=== PATIENT | female | born 1980 | race Two or more races ===

== ENCOUNTER 2023-08-08 21:49 | Emergency (ER) | payer OTHER ==
[~2023-08-08] VITALS: Ht 157.5 cm; Wt 65.9 kg
[2023-08-08 23:17] LABS: COVID AG,FIA SOURCE NASAL SWAB
[2023-08-08 23:40] LABS: SARS-COV2 (COVID) ANTIGEN,FIA Negative (Negative)
[2023-08-08 23:42] LABS: INFLUENZA TYPE A NEGATIVE FOR TYPE A (NEGATIVE); INFLUENZA TYPE B NEGATIVE FOR TYPE B (NEGATIVE)
[2023-08-09] MEDS ORDERED: CloNIDine HCL 0.1 MG TABLET PO ONE
[2023-08-09] MEDS ORDERED: CloNIDine HCL 0.2 MG TABLET PO ONE
[2023-08-09 00:17] LABS: BASOPHILS % (AUTO) 0.2 % (0.0-2.0); EOSINOPHILS % (AUTO) 0.6 % (1.0-6.0); HEMATOCRIT 37.2 % (36-46); HEMOGLOBIN 11.9 g/dL (12.0-16.0); LYMPHOCYTES # (AUTO) 0.5 K/uL (1.0-4.8); LYMPHOCYTES % (AUTO) 4.5 % (22.0-44.0); MEAN CORPUSCULAR HEMOGLOBIN 27.6 pg (26.0-34.0); MEAN CORPUSCULAR HGB CONC 32.1 G/dL (31.0-37.0); MEAN CORPUSCULAR VOLUME 86 fL (80-100); MONOCYTES # (AUTO) 0.5 K/uL (0.1-1.0); MONOCYTES % (AUTO) 4.4 % (2.0-9.0); NEUTROPHILS # (AUTO) 10.2 K/uL (1.8-7.7); NEUTROPHILS % (AUTO) 90.3 % (40.0-70.0); PLATELET COUNT (AUTO) 286 K/uL (150-450); RED BLOOD CELL COUNT(AUTO) 4.33 MIL/uL (4.00-5.20); WHITE BLOOD COUNT (AUTO) 11.3 K/uL (4.5-11.0)
[2023-08-09 00:34] LABS: TROPONIN I-HIGH SENSITIVITY 11 ng/L (<51)
[2023-08-09 00:35] LABS: B-TYPE NATRIURETIC PEPTIDE 64 pg/mL (0-100)
[2023-08-09 00:42] LABS: ALANINE AMINOTRANSFERASE 18 U/L (12-78); ALBUMIN 3.7 g/dL (3.4-5.0); ALKALINE PHOSPHATASE 94 U/L (46-116); ANION GAP 9 mmol/L (8-16); ASPARTATE AMINOTRANSFERASE 14 U/L (15-37); BILIRUBIN,TOTAL 0.5 mg/dL (0.1-1.0); CALCIUM, TOTAL 8.2 mg/dL (8.8-10.5); CARBON DIOXIDE 27 mmol/L (22-29); CHLORIDE 102 mmol/L (98-107); CREATINE KINASE, TOTAL ONLY 75 U/L (26-192); GLOMERULAR FILTR. RATE CALC > 60 mL/min (>60); GLUCOSE,RANDOM 109 mg/dL (70-110); LIPASE 26 U/L (16-77); SODIUM SERUM 138 mmol/L (136-145); TOTAL PROTEIN, SERUM 7.1 g/dL (6.4-8.2); UREA NITROGEN, BLOOD 13 mg/dL (7-18)
[2023-08-09 00:43] LABS: POTASSIUM 2.7 mmol/L (3.5-5.1)
[2023-08-09] MEDS ORDERED: POTASSIUM CHLORIDE 20 MEQ ER TABLET PO ONE (01:45)
[2023-08-09] MEDS ORDERED: POTA-364 PO (02:20)
[2023-08-09] MEDS ORDERED: AMLO-257 PO (02:22)
[2023-08-09 02:54] VITALS: BP 142/94; PULSE 82; RESP 16
== END 2023-08-09 03:04 | disposition home or self-care (01) ==
LOC: EMS 21:50
DX: I16.0 Hypertensive urgency (principal); E87.6 Hypokalemia; Z20.822 Contact with and (suspected) exposure to COVID-19
CPT/HCPCS: 71045; 80053; 82550; 83690; 83880; 84484; 85025; 87804; 93005; 99291; 36415-L1; 36415-TC

== ENCOUNTER 2024-10-23 16:27 | Inpatient (IN) | payer OTHER ==
[~2024-10-23] VITALS: Ht 160 cm; Wt 75.2 kg
[~2024-10-23 16:27] MED LIST: AMLO-257 PO; POTA-364 PO
[2024-10-23] MEDS: ACETAMINOPHEN 500 MG TABLET PO ONE (20:23)
[2024-10-23] MEDS: AmLODIPine BESYLATE 10 MG TABLET PO ONE (20:23)
[2024-10-23] MEDS: ONDANSETRON HCL 4 MG/2 ML VIAL IVP ONE (20:23)
[2024-10-23 20:55] LABS: BASOPHILS % (AUTO) 0.5 % (0.0-2.0); EOSINOPHILS % (AUTO) 0.6 % (1.0-6.0); HEMATOCRIT 41.3 % (36-46); HEMOGLOBIN 13.7 g/dL (12.0-16.0); LYMPHOCYTES # (AUTO) 1.7 K/uL (1.0-4.8); LYMPHOCYTES % (AUTO) 20.9 % (22.0-44.0); MEAN CORPUSCULAR HEMOGLOBIN 30.6 pg (26.0-34.0); MEAN CORPUSCULAR HGB CONC 33.3 G/dL (31.0-37.0); MEAN CORPUSCULAR VOLUME 92 fL (80-100); MONOCYTES # (AUTO) 0.6 K/uL (0.1-1.0); MONOCYTES % (AUTO) 7.3 % (2.0-9.0); NEUTROPHILS # (AUTO) 5.6 K/uL (1.8-7.7); NEUTROPHILS % (AUTO) 70.7 % (40.0-70.0); PLATELET COUNT (AUTO) 327 K/uL (150-450); RED BLOOD CELL COUNT(AUTO) 4.49 MIL/uL (4.00-5.20); RED CELL DISTRIBUTION WIDTH 13.8 % (11.5-14.5); WHITE BLOOD COUNT (AUTO) 7.9 K/uL (4.5-11.0)
[2024-10-23 20:59] LABS: ANION GAP 12 mmol/L (8-16); CALCIUM, TOTAL 8.7 mg/dL (8.8-10.5); CARBON DIOXIDE 27 mmol/L (22-29); CHLORIDE 99 mmol/L (98-107); CREATININE 0.57 mg/dL (0.60-1.30); GLOMERULAR FILTR. RATE CALC > 60 mL/min (>60); GLUCOSE,RANDOM 105 mg/dL (70-110); SODIUM SERUM 138 mmol/L (136-145); UREA NITROGEN, BLOOD 7 mg/dL (7-18)
[2024-10-23 21:03] LABS: ALCOHOL, BLOOD (SERUM) < 3 mg/dL (0-10); POTASSIUM 2.7 mmol/L (3.5-5.1)
[2024-10-23] MEDS: POTASSIUM CHLORIDE 20 MEQ ER TABLET PO ONE (21:58)
[2024-10-23] MEDS: POTASSIUM CHLORIDE 10% 40 MEQ/30 ML LIQUID UDCUP PO ONE (21:58)
[2024-10-23] MEDS: LABETALOL HCL 5 MG/ML 20 ML VIAL IVP ONE (22:32)
[2024-10-23] MEDS: NITROGLYCERIN 2% (1 GM=INCH) OINTMENT PACKET TP ONE (23:00)
[2024-10-23] MEDS ORDERED: MAGNESIUM SULFATE 2 GM/WATER 50 ML IV PRN (23:30)
[2024-10-23] MEDS ORDERED: MAGNESIUM HYDROXIDE SUSPENSION 30 ML UDCUP PO PRN (23:30)
[2024-10-23] MEDS ORDERED: MAGNESIUM OXIDE 400 MG TABLET PO PRN (23:30)
[2024-10-23] MEDS ORDERED: BISACODYL 10 MG RECTAL RECTAL SUPPOSITORY PR PRN (23:30)
[2024-10-23] MEDS ORDERED: IPRATROPIUM BROMIDE 0.5 MG/2.5 ML NEB SOLUTION NEB PRN (23:30)
[2024-10-23] MEDS ORDERED: HydrALAZINE HCL 20 MG/ML VIAL IVP PRN (23:30)
[2024-10-23] MEDS ORDERED: MAGNESIUM SULFATE 4 GM/WATER 100 ML IV PRN (23:30)
[2024-10-23] MEDS ORDERED: ONDANSETRON HCL 4 MG/2 ML VIAL IVP PRN (23:30)
[2024-10-23] MEDS ORDERED: ALBUTEROL SULFATE 2.5 MG/0.5 ML NEB SOLUTION NEB PRN (23:30)
[2024-10-23] MEDS ORDERED: POTASSIUM CHL 10 MEQ/WATER 50 ML IV PRN (23:30)
[2024-10-23] MEDS: HEPARIN SODIUM,PORCINE 5,000 UNITS/ML VIAL SQ SCH (23:47)
[2024-10-23] MEDS: CloNIDine HCL 0.2 MG TABLET PO ONE (23:47)
[2024-10-24] MEDS: ONDANSETRON 4 MG TABLET PO ONE (01:11)
[2024-10-24] MEDS: LORazepam 1 MG TABLET PO ONE (01:11)
[2024-10-24] MEDS: ZOLPIDEM TARTRATE 5 MG TABLET PO PRN (01:12)
[2024-10-24] MEDS: ACETAMINOPHEN 325 MG TABLET PO PRN (01:41)
[2024-10-24 03:45] VITALS: BP 119/77; PULSE 67; RESP 19; TEMP 98.1; O2SAT 97
[2024-10-24 08:04] VITALS: BP 108/79; PULSE 84; RESP 18; TEMP 98.2; O2SAT 99
[2024-10-24 08:06] LABS: BASOPHILS % (AUTO) 0.9 % (0.0-2.0); EOSINOPHILS % (AUTO) 3.4 % (1.0-6.0); HEMATOCRIT 38.5 % (36-46); HEMOGLOBIN 12.8 g/dL (12.0-16.0); LYMPHOCYTES # (AUTO) 1.6 K/uL (1.0-4.8); LYMPHOCYTES % (AUTO) 30.1 % (22.0-44.0); MEAN CORPUSCULAR HEMOGLOBIN 30.6 pg (26.0-34.0); MEAN CORPUSCULAR HGB CONC 33.3 G/dL (31.0-37.0); MEAN CORPUSCULAR VOLUME 92 fL (80-100); MONOCYTES # (AUTO) 0.5 K/uL (0.1-1.0); MONOCYTES % (AUTO) 9.5 % (2.0-9.0); NEUTROPHILS # (AUTO) 2.9 K/uL (1.8-7.7); NEUTROPHILS % (AUTO) 56.1 % (40.0-70.0); PLATELET COUNT (AUTO) 315 K/uL (150-450); RED CELL DISTRIBUTION WIDTH 14.1 % (11.5-14.5); WHITE BLOOD COUNT (AUTO) 5.2 K/uL (4.5-11.0)
[2024-10-24 08:10] LABS: ANION GAP 10 mmol/L (8-16); CALCIUM, TOTAL 8.4 mg/dL (8.8-10.5); CARBON DIOXIDE 24 mmol/L (22-29); CHLORIDE 104 mmol/L (98-107); CREATININE 0.64 mg/dL (0.60-1.30); GLOMERULAR FILTR. RATE CALC > 60 mL/min (>60); GLUCOSE,RANDOM 109 mg/dL (70-110); POTASSIUM 3.4 mmol/L (3.5-5.1); SODIUM SERUM 138 mmol/L (136-145); UREA NITROGEN, BLOOD 10 mg/dL (7-18)
[2024-10-24] MEDS: CloNIDine HCL 0.1 MG TABLET PO SCH (08:17)
[2024-10-24] MEDS: PANTOPRAZOLE SODIUM 40 MG DR TABLET PO SCH (08:18)
[2024-10-24] MEDS: POTASSIUM CHLORIDE 20 MEQ ER TABLET PO PRN (09:47)
[2024-10-24 12:13] VITALS: BP 108/67; PULSE 79; RESP 18; TEMP 99.3; O2SAT 100
[2024-10-24 16:03] VITALS: BP 101/71; PULSE 66; RESP 18; TEMP 98.1; O2SAT 100
[2024-10-24 19:40] VITALS: BP 105/57; PULSE 69; RESP 18; TEMP 98.1; O2SAT 97
[2024-10-25 00:14] VITALS: BP 106/77; PULSE 64; RESP 18; TEMP 97.7; O2SAT 98
[2024-10-25 05:07] VITALS: BP 105/57; PULSE 56; RESP 18; TEMP 97.9; O2SAT 100
[2024-10-25 07:42] LABS: TROPONIN I-HIGH SENSITIVITY 32 ng/L (<51)
[2024-10-25 07:48] LABS: ANION GAP 9 mmol/L (8-16); CARBON DIOXIDE 24 mmol/L (22-29); CHLORIDE 105 mmol/L (98-107); CREATININE 0.69 mg/dL (0.60-1.30); GLOMERULAR FILTR. RATE CALC > 60 mL/min (>60); GLUCOSE,RANDOM 100 mg/dL (70-110); POTASSIUM 3.7 mmol/L (3.5-5.1); SODIUM SERUM 138 mmol/L (136-145); THYROID STIMULATING HORMONE 1.17 uIU/mL (0.36-3.74); UREA NITROGEN, BLOOD 17 mg/dL (7-18)
[2024-10-25 07:53] LABS: CALCIUM, TOTAL 8.4 mg/dL (8.8-10.5)
[2024-10-25] MEDS: AmLODIPine BESYLATE 2.5 MG TABLET PO SCH (08:07)
[2024-10-25 08:33] VITALS: BP 111/57; PULSE 68; RESP 18; TEMP 98.2; O2SAT 100
[2024-10-25 11:38] VITALS: BP 106/63; PULSE 71; RESP 19; TEMP 98.1; O2SAT 98
[2024-10-25 16:05] VITALS: BP 114/66; PULSE 69; RESP 18; TEMP 98; O2SAT 100
[2024-10-25 19:30] VITALS: BP 123/94; PULSE 61; RESP 18; TEMP 98.1; O2SAT 98
[2024-10-26 00:10] VITALS: BP 140/90; PULSE 71; RESP 18; TEMP 98.4; O2SAT 99
[2024-10-26 05:47] VITALS: BP 125/93; PULSE 59; RESP 17; TEMP 97.9; O2SAT 99
[2024-10-26 08:26] VITALS: BP 147/89; PULSE 69; RESP 18; TEMP 98.2; O2SAT 100
[2024-10-26] MEDS ORDERED: AMLO2.5T29 PO (11:43)
[2024-10-26 11:44] VITALS: BP 136/91; PULSE 63; RESP 17; TEMP 98.6; O2SAT 98
== END 2024-10-26 14:20 | DRG 641 ==
LOC: EMS 16:28 → EDH 23:23 → 5S 10-24 03:25
PROVIDERS: ADMIT Hospitalist; ATTEND Hospitalist
DX: E87.6 Hypokalemia (principal); I10 Essential (primary) hypertension; F15.10 Other stimulant abuse, uncomplicated; R51.9 Headache, unspecified; I49.9 Cardiac arrhythmia, unspecified; Z79.899 Other long term (current) drug therapy; Z91.148 Patient's other noncompliance with medication regimen for other reason
CPT/HCPCS: 71045; 80048; 82040; 83735; 84132; 84443; 84484; 84703; 85025; 93005; 93306; 99291; G0378; G0480; J1644; J2405; J3490; Q0162; 36415-L1; 36415-TC